=== PATIENT | male | born 1985 | race African-American/Black ===

== ENCOUNTER 2020-11-05 02:26 | Emergency (ER) | payer OTHER ==
[~2020-11-05] VITALS: Ht 182.9 cm; Wt 122.0 kg
[2020-11-05 02:32] VITALS: Ht 182.9 cm; Wt 122.0 kg
[2020-11-05] MEDS ORDERED: MOT800 PO (04:10)
[2020-11-05 04:36] VITALS: BP 144/82
== END 2020-11-05 04:36 | disposition home or self-care (01) ==
LOC: ED 02:26
DX: S93.601A Unspecified sprain of right foot, initial encounter (principal); Z91.018 Allergy to other foods; W20.8XXA Other cause of strike by thrown, projected or falling object, initial encounter; Y93.89 Activity, other specified; Y92.89 Other specified places as the place of occurrence of the external cause; Y99.8 Other external cause status